=== PATIENT | male | born 1965 | race Caucasian/White ===

== ENCOUNTER 2017-10-14 11:06 | Inpatient (IN) | payer BC ==
[~2017-10-14] VITALS: Ht 175.3 cm; Wt 94.0 kg
[~2017-10-14 11:06] MED LIST: AMPICILLIN PO; JANUVIA100 MG PO; LEVEMIR100 UNIT/1 SC; LISINOPRIL2.5 MG PO; TYLENOL # 31 EA PO
--- OUTSIDE RECORDS SUMMARY | 2017-10-14 12:15 | XMS REPORT | Continuity of Care Document ---
Author Author [facility] Organization [facility] Address [address] [place] [address] Phone Unavailable Care Team Providers Care Pony Ride Attendant Name Role Phone NO, PCP PCP Unavailable Insurance Providers Guarantor Lina Lin Address [address] [place] [address] Email [email or web address] Policy Number [id number] Subscriber's Name Lina Lin Relationship 18 Self / Same As Patient Group Number [id number] Group Name [employer] Effective Date 17 Advance Directives Directive Response Recorded Date/Time Does the patient have an advance directive? No 10/05/17 5:47pm If yes, is advance directive on file with [facility]? No 10/05/17 5:47pm If not on file with [facility] will patient provide a copy? No 10/05/17 5:47pm Do you have a Directive to Physician? No 10/05/17 10:23am Do you have a Medical Power of Lamp [employer]? No 10/05/17 10:23am Do you have an out of hospital Do Not Resuscitate Order? No 10/05/17 10:23am Do you have any special needs we should be aware of? No 10/05/17 10:23am Do you have a support person here with you today? Yes 10/05/17 10:23am Did patient receive Notice of Privacy Practices? Yes 10/05/17 10:23am Did patient receive patient rights and responsibilities? Yes 10/05/17 10:23am Problems Medical Problem Onset Date Status Abscess of deltoid region Unknown Medications Current Home Medications Medication Dose Units Route Directions Days Qty Instructions Start Date Acetaminophen/Codeine Phosphate (Tylenol # 3*) 1 Ea Tab 1 Tab Oral Every 8 Hours as needed for Pain 30 10/07/17 Ampicillin 500 Mg Oral Every 6 Hours 7 Days 10/07/17 Insulin Detemir (Levemir) 100 Unit/1 Ml Vial 20 Subcutaneously Daily Insulin Detemir (Levemir) 100 Unit/1 Ml Vial 20 Mg Subcutaneously Bedtime Lisinopril 2.5 Mg Tablet 2.5 Mg Oral Daily 30 Tab Sitagliptin Phosphate (Januvia) 100 Mg Tablet 100 Mg Oral Daily 30 Days 10/07/17 Social History Social History Problem Response Recorded Date/Time Onset Date Status Hx Psychiatric Problems No 10/05/2017 5:47pm Not Applicable Not Applicable Hx Eating Disorder No 10/05/2017 5:47pm Not Applicable Not Applicable Hx Substance Use Disorder No 10/05/2017 5:47pm Not Applicable Not Applicable Hx Depression No 10/05/2017 5:47pm Not Applicable Not Applicable Hx Alcohol Use Y - ONCE OR TWICE A MONTH 10/05/2017 5:47pm Not Applicable Not Applicable Hx Substance Use Treatment No 10/05/2017 5:47pm Not Applicable Not Applicable Hx Physical Abuse No 10/05/2017 5:47pm Not Applicable Not Applicable Smoking Status Start Date Stop Date Current every day smoker Hospital Discharge Instructions No hospital discharge instruction information available. Plan of Care Discharge Date 10/07/17 1:26pm Disposition HOME, SELF-CARE Instructions/Education Provided Skin Abscess Prescriptions See Medication Section Additional Instructions/Education F/U WITH PCP IN 2 WEEKS Functional Status Query Response Date Recorded Assistive Devices None October 05, 2017 5:56pm Ambulation Ability Independent October 05, 2017 5:56pm Toileting Ability Independent October 06, 2017 5:11am Allergies, Adverse Reactions, Alerts No known allergies. Immunizations No immunization information available. Vital Signs Acute Vital Signs Vital Response Date/Time Temperature (Fahrenheit) 98.1 degrees F (97.6 - 99.5) 10/07/2017 12:10pm Pulse Pulse Rate (adult) 85 bpm (60 - 90) 10/07/2017 12:10pm Respiratory Rate 20 bpm (12 - 24) 10/07/2017 12:10pm Blood Pressure 156/89 mm Hg 10/07/2017 12:10pm Height 5 ft 9 in 10/05/2017 9:23am Weight 210 lb 10/05/2017 9:23am Body Mass Index 31.0 kg/m^2 10/05/2017 5:47pm Results Laboratory Results Test Name Result Units Flags Reference Collection Date/Time Result Date/ Time Comments White Blood Count 8.34 x10e3/uL 4.8-10.8 10/07/2017 6:30am 10/07/2017 7 :57am Red Blood Count 3.87 x10e6/uL L 4.3-5.7 10/07/2017 6:30am 10/07/2017 7: 57am Hemoglobin 11.7 g/dL L 14.0-18.0 10/07/2017 6:3010/07/2017 7:57am Hematocrit 35.3 % L 38.2-49.6 10/07/2017 6:3010/07/2017 7:57am Mean Corpuscular Volume 91.2 fL 81-99 10/07/2017 6:3010/07/2017 7: 57am Mean Corpuscular Hemoglobin 30.2 pg 28-32 10/07/2017 6:3010/07/2017 7:57am Mean Corpuscular Hemoglobin Concent 33.1 g/dL 31-35 10/07/2017 6:3010/07/2017 7:57am Red Cell Distribution Width 11.9 % 11.7-14.4 10/07/2017 6:302017 7:57am Platelet Count 243 x10e3/uL 140-360 10/07/2017 6:3010/07/2017 7: 57am Neutrophils (%) (Auto) 73.9 % 38.7-80.0 10/07/2017 6:3010/07/2017 7: 57am Lymphocytes (%) (Auto) 12.9 % L 18.0-39.1 10/07/2017 6:3010/07/2017 7 :57am Monocytes (%) (Auto) 10.4 % 4.4-11.3 10/07/2017 6:30am 10/07/2017 7: 57am Eosinophils (%) (Auto) 1.3 % 0.0-6.0 10/07/2017 6:30am 10/07/2017 7: 57am Basophils (%) (Auto) 0.5 % 0.0-1.0 10/07/2017 6:30am 10/07/2017 7:57am IM GRANULOCYTES % 1.0 % 0.0-1.0 10/07/2017 6:30am 10/07/2017 7:57am Neutrophils # (Auto) 6.2 2.1-6.9 10/07/2017 6:30am 10/07/2017 7:57am Lymphocytes # (Auto) 1.1 1.0-3.2 10/07/2017 6:30am 10/07/2017 7:57am Monocytes # (Auto) 0.9 H 0.2-0.8 10/07/2017 6:30am 10/07/2017 7:57am Eosinophils # (Auto) 0.1 0.0-0.4 10/07/2017 6:30am 10/07/2017 7:57am Basophils # (Auto) 0.0 0.0-0.1 10/07/2017 6:30am 10/07/2017 7:57am Absolute Immature Granulocyte (auto 0.08 x10e3/uL 0-0.1 10/07/2017 6: 30am 10/07/2017 7:57am Prothrombin Time 14.1 seconds 11.9-14.5 10/05/2017 9:20am 10/05/2017 10 :02am Prothromb Time International Ratio 1.18 10/05/2017 9:20am 2017 10:02am Oral Anticoagulant Therapy INR Values: 1. Low Intensity Therapy 1.5 - 2.0 2. Moderate Intensity Therapy 2.0 - 3.0 3. High Intensity Therapy(1) 2.5 - 3.5 4. High Intensity Therapy(2) 3.0 - 4.0 5. Panic Value INR > 5.0 Activated Partial Thromboplast Time 32.5 seconds 23.8-35.5 10/05/2017 9: 20am 10/05/2017 10:02am Sodium Level 136 mmol/L 136-145 10/07/2017 6:30am 10/07/2017 8:10am Potassium Level 4.4 mmol/L 3.5-5.1 10/07/2017 6:30am 10/07/2017 8:10am Chloride Level 98 mmol/L 98-107 10/07/2017 6:30am 10/07/2017 8:10am Carbon Dioxide Level 29 mmol/L 22-29 10/07/2017 6:30am 10/07/2017 8: 10am Anion Gap 13.4 mmol/L 8-16 10/07/2017 6:30am 10/07/2017 8:10am Blood Urea Nitrogen 12 mg/dL 7-26 10/07/2017 6:30am 10/07/2017 8:10am Creatinine 0.74 mg/dL 0.72-1.25 10/07/2017 6:30am 10/07/2017 8:10am BUN/Creatinine Ratio 16 6-10/07/2017 6:30am 10/07/2017 8:10am Estimat Glomerular Filtration Rate > 60 ML/MIN 60- 10/07/2017 6:30am 8:10am Ranges were taken from the National Kidney Disease Education Program and the National Kidney Foundation literature. Reference ranges: 60 or greater: Normal 16-59 (for 3 consecutive months): Chronic kidney disease 15 or less: Kidney failure Glucose Level 279 mg/dL H 74-118 10/07/2017 6:30am 10/07/2017 8:10am Calcium Level 9.3 mg/dL 8.4-10.2 10/07/2017 6:30am 10/07/2017 8:10am Bedside Glucose 344 mg/dL H 70-120 10/07/2017 11:34am 10/07/2017 11: 57am Meter ID: [id number] Hemoglobin A1c Percent 12.1 % H 4.0-7.0 10/06/2017 5:50am 10/06/2017 6: 36am Magnesium Level 1.3 MG/DL 1.3-2.1 10/07/2017 6:30am 10/07/2017 8:10am Total Bilirubin 0.6 mg/dL 0.2-1.2 10/05/2017 9:20am 10/05/2017 10:07am Aspartate Amino Transf (AST/SGOT) 17 IU/L 5-34 10/05/2017 9:20am 2017 10:07am Alanine Aminotransferase (ALT/SGPT) 25 IU/L 0-55 10/05/2017 9:20am 09/2017 10:07am Total Protein 7.2 g/dL 6.5-8.1 10/05/2017 9:20am 10/05/2017 10:07am Albumin 2.6 g/dL L 3.5-5.0 10/05/2017 9:20am 10/05/2017 10:07am Globulin 4.6 g/dL H 2.3-3.5 10/05/2017 9:20am 10/05/2017 10:07am Albumin/Globulin Ratio 0.6 L 0.8-2.0 10/05/2017 9:20am 10/05/2017 10: 07am Alkaline Phosphatase 104 IU/L 40-150 10/05/2017 9:20am 10/05/2017 10: 07am Thyroid Stimulating Hormone (TSH) 0.891 uIU/mL 0.350-4.940 10/06/2017 5: 50am 10/06/2017 7:11am Vancomycin Level Trough 4.3 ug/mL L 5.0-10.0 10/07/2017 8:49am 2017 10:31am Body Fluid Type RT DELTOID ABSCESS 10/05/2017 3:00pm 10/05/2017 5: 08pm Body Fluid Color RED 10/05/2017 3:00pm 10/05/2017 5:08pm Body Fluid Appearance TURBID 10/05/2017 3:00pm 10/05/2017 5:08pm Body Fluid WBC 20764 cells/uL 10/05/2017 3:00pm 10/05/2017 5:08pm Body Fluid RBC 96210 cells/uL 10/05/2017 3:00pm 10/05/2017 5:08pm Body Fluid Neutrophils 0 % 10/05/2017 3:00pm 10/05/2017 5:09pm Body Fluid Lymphocytes 91 % 10/05/2017 3:00pm 10/05/2017 5:07pm Body Fluid Monocytes 9 % 10/05/2017 3:00pm 10/05/2017 5:07pm Body Fluid Total Cells Counted 100 10/05/2017 3:00pm 10/05/2017 5: 07pm Microbiology Results Procedure Source Organism/Result Collection Date/Time Result Date/Time Result Status Blood Culture Blood NO GROWTH AFTER 48 HOURS 9:20am 10/07/2017 9:51am Preliminary Wound Culture Shoulder, Right STREP AGALACTIAE GROUP B 10/05/2017 3:00pm 10:07am Final Procedures Procedure Status Date Provider(s) Limited non-vascular ultrasound of extremity Active 10/05/17 BOAZ WELLS MD Imaging guided percutaneous drainage of abscess Active 10/05/17 BOAZ WELLS MD Limited non-vascular ultrasound of extremity Active 10/06/17 DAVID SEN PHARMACY BILLING ADJUDICATOR Encounters Encounter Location Arrival/Admit Date Discharge/Depart Date Attending Provider Discharged Inpatient [facility] 10/05/17 11:14am 1:26pm SIGIFREDO ROMEO MD
[2017-10-14] MEDS ORDERED: ONDANSETRON HCL INJ 2 MG/ML VIAL IV PRN (12:30)
[2017-10-14] MEDS ORDERED: DEXTROSE 50% SYRINGE 50 ML IV PRN (12:30)
[2017-10-14] MEDS ORDERED: ONDANSETRON HCL 4 MG ORAL DISINTEGRATING TAB SL PRN (12:45)
[2017-10-14] MEDS: MORPHINE SULFATE 2 MG/ML SYR IV PRN ×2 (12:50→20:00)
[2017-10-14 13:22] VITALS: BP 131/80
[2017-10-14] MEDS ORDERED: SODIUM CHLORIDE 0.9% 50ML 50 ML ONE (14:02)
[2017-10-14] MEDS ORDERED: PIPER-TAZ 3.375 GM 100 ML IV ONE (15:00)
[2017-10-14 16:00] VITALS: BP 134/85
[2017-10-14] MEDS: INSULIN REGULAR, HUMAN 100 UNIT/1 ML 3ML VIAL SQ SCH ×2 (17:03→22:00)
[2017-10-14] MEDS ORDERED: LIDOCAINE HCL 2% LOCAL INJ 5 ML SDV VIAL INJ ONE (19:48)
[2017-10-14] MEDS ORDERED: SEVOFLURANE INHAL SOLN 250 ML PEN BTL ONE (19:48)
[2017-10-14] MEDS ORDERED: ONDANSETRON HCL INJ 2 MG/ML VIAL ONE (19:48)
[2017-10-14] MEDS ORDERED: PROPOFOL IV EMULSION 10 MG/ML 20 ML VIAL ONE (19:48)
[2017-10-14 20:00] VITALS: BP 130/82
[2017-10-15] VITALS (7 sets, daily range): BP systolic 119–147; BP diastolic 74–92
[2017-10-15] MEDS: MORPHINE SULFATE 2 MG/ML SYR IV PRN ×4 (02:15→23:01)
[2017-10-15] MEDS: INSULIN REGULAR, HUMAN 100 UNIT/1 ML 3ML VIAL SQ SCH ×4 (07:30→20:28)
[2017-10-15] MEDS ORDERED: DEXTROSE 5%/0.45% SOD CHL 1,000 ML IV ONE (11:15)
[2017-10-15] MEDS ORDERED: VANCOMYCIN 1GM/NS 250 ML 250 ML IV SCH (11:30)
[2017-10-15] MEDS: VANCOMYCIN 1GM/NS 250 ML 250 ML IV SCH (12:11)
[2017-10-15] MEDS: PIPER-TAZ 3.375 GM 100 ML IV SCH ×2 (13:40→22:55)
--- NOTE | 2017-10-15 14:30 | History and Physical ---
PRIMARY CARE PHYSICIAN: He does not have a PCP. 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 This became progressively worse, and the bruise did not dissipate. Thus he went to [facility] urgent care and had an MRI where they told him that he needed surgery due to an abscess. He was on clindamycin since October 12. He arrived via the emergency department, is currently stable without leukocytosis and is afebrile. PAST MEDICAL HISTORY: Hypertension, type 2 diabetes mellitus. PAST SURGICAL HISTORY: He states he has never had surgery. SOCIAL HISTORY: The patient works in construction. He is single, has a daughter. He is , speaks [place] as primary language. He smokes about 3 cigarettes per day. He drinks alcohol on occasion. He denies any illicit drug use. ALLERGIES: NO KNOWN ALLERGIES. HOME MEDICATIONS: Include 1. Tylenol No. 3 one tablet p.o. q.8 h. p.r.n. for pain. 2. Lisinopril 2.5 mg p.o. daily. 3. Januvia 100 mg p.o. daily. 4. Levemir 20 units subcutaneous q.12 h. 5. Clindamycin. REVIEW OF SYSTEMS GENERAL: Denies fatigue or malaise. Denies any fever or chills. HEENT: Denies any visual complaints or complaints of dry throat. Denies stuffy nose. CARDIOVASCULAR: Denies any chest pain or palpitations. PULMONARY: He denies any pleuritic chest pain, cough, shortness of breath. GASTROINTESTINAL: Denies nausea, vomiting, diarrhea, constipation, melena or hematemesis. GENITOURINARY: No complaints of dysuria or pyuria. MUSCULOSKELETAL: The patient complains of right shoulder pain approximately 7 on a scale of 0 to 10. Denies any back pain or other joint pain. ENDOCRINE: Positive for diabetes. HEMATOLOGY: Denies any history of bleeding or bruising. INFECTIOUS DISEASE: No known history of HIV or immunodeficiency. NEUROLOGIC: Denies any numbness, tingling, seizures. He has some focal weakness in the right arm associated with the abscess. PHYSICAL EXAMINATION VITAL SIGNS: Temperature 98.1, T-max 98.4, heart rate 73, blood pressure 145/80, respirations 18, oxygen saturation 95%. GENERAL: The patient is lying supine in bed. He is awake, alert, oriented, well nourished, well developed, in no apparent distress. HEENT: Pupils equal, round, reactive to light. Extraocular eye movements are intact. Oropharynx is clear. Atraumatic, normocephalic. NECK: Supple. No lymphadenopathy, thyromegaly or JVD noted. CARDIOVASCULAR: Regular rate and rhythm without murmur. LUNGS: Clear to auscultation, air entry bilaterally. Respirations are even and unlabored. No wheezing, crackles or rhonchi. ABDOMEN: Bowel sounds positive. Soft, nontender. No hepatosplenomegaly noted. BACK: No costovertebral angle tenderness. EXTREMITIES: He has pain and decreased range of motion in the right upper extremity. He has joint swelling in the right shoulder and pain to gentle palpation. INTEGUMENTARY: No lesions or abrasions, et cetera. Skin is warm and dry. NEUROLOGICAL: GCS 15. Cranial nerves 2-12 are intact. Nonfocal. Alert and oriented x3. LABORATORY DATA: Fingerstick blood glucose level 119, yesterday 272 and 221. He has not had any other labs drawn. On October 06 he had a right shoulder ultrasound which showed no fluid collections, abscesses or masses. On October 05 he had a chest x-ray which was negative. Yesterday he had an MRI of the right shoulder which showed a fairly large multilocular 8.5 cm long x 3 cm deep x 3 cm craniocaudal intramuscular abscess involving the dorsal aspect of the deltoid muscle as well as lateral portion of the infraspinous muscle belly. No EKG noted in the chart. ASSESSMENT AND PLAN 1. Right deltoid abscess. Case was discussed with Dr. Franklin. Will ask that Dr. Almodovar with general surgery see the patient. For now will put in orders for vancomycin 1 g IV q.24 h. and Zosyn 3.375 g IV q.8 h. Maintain nutritional support. We will start wound healing supplements preoperatively. The patient will likely require surgery due to the size and extent of the abscess. 2. Right shoulder pain. Currently pain is relieved, been on morphine sulfate 4 mg q.4 h. p.r.n. 3. Hypertension. Continue home medication of lisinopril 2.5 mg p.o. daily. 4. Type 2 diabetes mellitus. Continue regular insulin sliding scale and monitor fingerstick blood glucose levels a.c. and nightly. I will start Lovenox for DVT prophylaxis and Pepcid for peptic ulcer disease prophylaxis. Dictated by: Ronald Cortez, SHUTTLE FINAL INSPECTOR SIGIFREDO FRANKLIN MD Job#: [id number] EV
[2017-10-15] MEDS ORDERED: FENTANYL CITRATE/PF 100MCG/2 ML INJ ONE ×2 (14:45→15:37)
[2017-10-15] MEDS ORDERED: MIDAZOLAM HCL 2 MG/2 ML VIAL ONE (14:45)
[2017-10-15] MEDS ORDERED: HYDROCODONE/APAP 7.5MG-325MG 1 EA TAB PO PRN (15:30)
--- NOTE | 2017-10-15 15:57 | Consultation ---
DATE OF CONSULTATION: October 15, 2017 SURGICAL CONSULTATION REFERRING PHYSICIAN: Dr. Franklin. HISTORY OF PRESENT ILLNESS: Patient is a 52-year-old male who has had complaints of pain in his right shoulder for about a month after doing some heavy lifting. He had previous percutaneous drainage, but the pain has persisted and it has now developed purulent drainage from the area. Also noted to have findings as he may have diabetes. PAST MEDICAL HISTORY: Significant for hypertension. ALLERGIES: HE HAS NO ALLERGIES. FAMILY HISTORY: Noncontributory. SOCIAL HISTORY: Noncontributory. REVIEW OF SYSTEMS: As stated above. He has not had any fever. PHYSICAL EXAMINATION: GENERAL: The patient is awake and alert. VITAL SIGNS: The vitals signs were normal. HEENT: Reveals no scleral icterus. NECK: Has no masses. LUNGS: Equal breath sounds are clear bilaterally. CARDIAC: Regular rate and rhythm with no murmur. ABDOMEN: Soft without tenderness. EXTREMITIES: In the right shoulder, there is swelling and induration over the lateral right shoulder. There is a sinus tract opening with purulent drainage. ASSESSMENT: This is a 52-year-old male with an abscess in the right shoulder. Plan incision and drainage of the abscess to be done today. Procedure was explained to the patient. Thank you for asking me to see Mr. Osorio. Job#: [id number] NATALY
--- NOTE | 2017-10-15 16:01 | Operative Report ---
DATE OF PROCEDURE: October 15, 2017 PREOPERATIVE DIAGNOSIS: Abscess, right shoulder. POSTOPERATIVE DIAGNOSIS: Deep complex abscess, right shoulder. PROCEDURE: Incision and drainage of deep keep complex abscess, right shoulder. SHOE STICKS REPAIRER: None. ANESTHESIA: General. INDICATIONS AND FINDINGS: Patient is a 52-year-old male who has had pain and infection in the right shoulder for about 3 weeks. At surgery there was purulent fluid deep within the right shoulder and the deltoid muscle extending down posteriorly along the scapula and medially almost to the axilla. Total amount of purulent fluid drained was about 125 mL. TECHNIQUE: After adequate general anesthesia with the patient in supine position with the right shoulder elevated, the right shoulder was prepped and draped in sterile fashion with Betadine solution. There was a sinus tract with purulent drainage. Incision was made through this area and carried down through the subcutaneous tissue. There we a pocket of purulent fluid in the subcutaneous tissue which was retracted inferiorly. Incision was extended to provide adequate drainage. There was found to be sinus tracts with purulent fluid coming from deeper and the incision was deepened. There was purulent fluid coming from the deltoid muscle and this was opened and all the purulent fluid drained. There was no necrotic tissue. There was found posteriorly a tract containing a large amount of purulent fluid which tracked along the scapula, and this area was opened and all the fluid drained and also this extended down along the scapula and towards the axilla. Once all the pockets of purulent fluid had been drained, the wound was irrigated with dilute Betadine solution. A total of about 125 mL of purulent fluid was drained. Hemostasis was seen to be adequate. Each pocket was then packed open with 1 inch iodoform gauze and sterile dressing applied. Patient tolerated procedure well. Estimated blood loss was 20 mL. There were no complications. All counts were correct. Patient was taken to the recovery room in satisfactory condition. Job#: [id number] cc:SIGIFREDO ROMEO MD
[2017-10-15] MEDS: ENOXAPARIN 30 MG/0.3 ML SYR SC SCH (16:50)
[2017-10-15] MEDS: ASCORBIC ACID 500 MG TAB PO SCH (16:50)
[2017-10-15] MEDS: ZINC SULFATE 220 MG CAP PO SCH (16:50)
[2017-10-15] MEDS: FAMOTIDINE 20 MG/2 ML VIAL IV SCH (16:50)
[2017-10-15] MEDS: OYST-CAL-D 500MG TABLET PO SCH (16:50)
[2017-10-15] MEDS: DOCUSATE SODIUM 100 MG CAP PO SCH (16:50)
[2017-10-15] MEDS: MAGNESIUM OXIDE 400 MG TAB PO SCH (16:50)
[2017-10-16] VITALS: BP 121/70
[2017-10-16 04:00] VITALS: BP 141/63
[2017-10-16] MEDS: MORPHINE SULFATE 2 MG/ML SYR IV PRN (05:04)
[2017-10-16] MEDS ORDERED: SODIUM CHLORIDE 0.9% 250ML 250 ML ONE (05:49)
[2017-10-16] MEDS: PIPER-TAZ 3.375 GM 100 ML IV SCH ×3 (06:00→22:53)
[2017-10-16 06:51] LABS: BASOPHILS # (AUTO) 0.1 (0.0-0.1); BASOPHILS % 0.6 % (0.0-1.0); EOSINOPHILS # (AUTO) 0.1 (0.0-0.4); EOSINOPHILS % 1.1 % (0.0-6.0); HEMATOCRIT 36.5 % (38.2-49.6); HEMOGLOBIN 12.1 g/dL (14.0-18.0); LYMPHOCYTES # (AUTO) 1.7 (1.0-3.2); LYMPHOCYTES % 16.4 % (18.0-39.1); MEAN CORPUSCULAR HEMOGLOBIN 29.7 pg (28-32); MEAN CORPUSCULAR HGB CONC 33.2 g/dL (31-35); MEAN CORPUSCULAR VOLUME 89.5 fL (81-99); MONOCYTES # (AUTO) 0.8 (0.2-0.8); MONOCYTES % 7.3 % (4.4-11.3); NEUTROPHILS # (AUTO) 7.5 (2.1-6.9); NEUTROPHILS % 73.7 % (38.7-80.0); PLATELET COUNT 314 x10e3/uL (140-360); RED BLOOD COUNT 4.08 x10e6/uL (4.3-5.7); RED CELL DISTRIBUTION WIDTH 11.8 % (11.7-14.4)
[2017-10-16 07:18] LABS: ANION GAP 13.3 mmol/L (8-16); BLOOD UREA NITROGEN 12 mg/dL (7-26); BUN/CREATININE RATIO 17 (6-25); CALCIUM 8.8 mg/dL (8.4-10.2); CARBON DIOXIDE 25 mmol/L (22-29); CHLORIDE 101 mmol/L (98-107); EST GLOMERULAR FILTRATION RATE > 60 ML/MIN (60-); GLUCOSE 260 mg/dL (74-118); MAGNESIUM 1.4 MG/DL (1.3-2.1); PHOSPHORUS 3.3 MG/DL (2.3-4.7); POTASSIUM 4.3 mmol/L (3.5-5.1); SODIUM 135 mmol/L (136-145)
[2017-10-16 07:21] VITALS: BP 122/78
[2017-10-16 07:25] LABS: THYROID STIMULATING HORMONE 1.776 uIU/mL (0.350-4.940)
[2017-10-16 07:30] VITALS: BP 122/78
[2017-10-16] MEDS: FAMOTIDINE 20 MG/2 ML VIAL IV SCH ×2 (07:30→16:30)
[2017-10-16] MEDS: OYST-CAL-D 500MG TABLET PO SCH ×2 (07:30→16:30)
[2017-10-16] MEDS: ZINC SULFATE 220 MG CAP PO SCH ×2 (07:30→16:30)
[2017-10-16] MEDS: DOCUSATE SODIUM 100 MG CAP PO SCH ×2 (07:30→16:30)
[2017-10-16] MEDS: MAGNESIUM OXIDE 400 MG TAB PO SCH ×2 (07:30→16:30)
[2017-10-16] MEDS: LISINOPRIL 2.5 MG TAB PO SCH (07:30)
[2017-10-16] MEDS: MULTIVITAMINS/MINERALS TAB PO SCH (07:30)
[2017-10-16] MEDS: INSULIN REGULAR, HUMAN 100 UNIT/1 ML 3ML VIAL SQ SCH ×4 (07:30→20:26)
[2017-10-16] MEDS: ASCORBIC ACID 500 MG TAB PO SCH ×2 (07:30→16:30)
[2017-10-16] MEDS ORDERED: MAGNESIUM SULFATE 2GM/50ML 50 ML IV ONE (08:00)
[2017-10-16 12:00] VITALS: BP 123/84
[2017-10-16] MEDS: VANCOMYCIN 1GM/NS 250 ML 250 ML IV SCH (13:11)
[2017-10-16 15:57] VITALS: BP 122/79
[2017-10-16] MEDS ORDERED: ACETAMINOPHEN 325 MG TAB PO PRN (16:00)
[2017-10-16] MEDS: ENOXAPARIN 30 MG/0.3 ML SYR SC SCH (16:30)
[2017-10-17 00:24] VITALS: BP_SYST 134
[2017-10-17] MEDS: MORPHINE SULFATE 2 MG/ML SYR IV PRN (02:05)
[2017-10-17] MEDS: PIPER-TAZ 3.375 GM 100 ML IV SCH (05:29)
[2017-10-17 05:46] VITALS: BP 115/77
[2017-10-17 06:11] LABS: BASOPHILS # (AUTO) 0.1 (0.0-0.1); BASOPHILS % 0.6 % (0.0-1.0); EOSINOPHILS # (AUTO) 0.1 (0.0-0.4); EOSINOPHILS % 1.3 % (0.0-6.0); HEMATOCRIT 36.8 % (38.2-49.6); HEMOGLOBIN 12.3 g/dL (14.0-18.0); LYMPHOCYTES # (AUTO) 1.9 (1.0-3.2); LYMPHOCYTES % 20.9 % (18.0-39.1); MEAN CORPUSCULAR HEMOGLOBIN 29.8 pg (28-32); MEAN CORPUSCULAR HGB CONC 33.4 g/dL (31-35); MEAN CORPUSCULAR VOLUME 89.1 fL (81-99); MONOCYTES # (AUTO) 0.7 (0.2-0.8); MONOCYTES % 7.3 % (4.4-11.3); NEUTROPHILS # (AUTO) 6.2 (2.1-6.9); NEUTROPHILS % 69.2 % (38.7-80.0); PLATELET COUNT 290 x10e3/uL (140-360); RED BLOOD COUNT 4.13 x10e6/uL (4.3-5.7); RED CELL DISTRIBUTION WIDTH 11.8 % (11.7-14.4)
[2017-10-17 06:35] LABS: ANION GAP 12.2 mmol/L (8-16); BLOOD UREA NITROGEN 15 mg/dL (7-26); BUN/CREATININE RATIO 20 (6-25); CARBON DIOXIDE 25 mmol/L (22-29); CHLORIDE 102 mmol/L (98-107); CREATININE, SERUM 0.75 mg/dL (0.72-1.25); EST GLOMERULAR FILTRATION RATE > 60 ML/MIN (60-); GLUCOSE 299 mg/dL (74-118); MAGNESIUM 1.7 MG/DL (1.3-2.1); PHOSPHORUS 3.2 MG/DL (2.3-4.7); POTASSIUM 4.2 mmol/L (3.5-5.1); SODIUM 135 mmol/L (136-145)
[2017-10-17] MEDS: OYST-CAL-D 500MG TABLET PO SCH (08:53)
[2017-10-17] MEDS: DOCUSATE SODIUM 100 MG CAP PO SCH (08:53)
[2017-10-17] MEDS: MULTIVITAMINS/MINERALS TAB PO SCH (08:53)
[2017-10-17] MEDS: MAGNESIUM OXIDE 400 MG TAB PO SCH (08:53)
[2017-10-17] MEDS: FAMOTIDINE 20 MG/2 ML VIAL IV SCH (08:53)
[2017-10-17] MEDS: INSULIN REGULAR, HUMAN 100 UNIT/1 ML 3ML VIAL SQ SCH ×2 (08:53→11:30)
[2017-10-17] MEDS: ASCORBIC ACID 500 MG TAB PO SCH (08:54)
[2017-10-17] MEDS: ZINC SULFATE 220 MG CAP PO SCH (08:54)
[2017-10-17] MEDS: LISINOPRIL 2.5 MG TAB PO SCH (08:54)
[2017-10-17 09:33] VITALS: BP 127/78
[2017-10-17] MEDS: VANCOMYCIN 1GM/NS 250 ML 250 ML IV SCH (15:21)
--- NOTE | 2017-10-17 18:29 | Discharge Summary ---
ADMISSION DIAGNOSES 1. Right deltoid abscess. 2. Right shoulder pain. 3. Hypertension. 4. Type 2 diabetes. DISCHARGE DIAGNOSES 1. Right deltoid abscess. 2. Right shoulder pain. 3. Hypertension. 4. Type 2 diabetes. 5. Hyponatremia. 6. History of hypertension. 7. Type 2 diabetes. 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 He experienced pain in the shoulder and thought it was a bruise. When the pain became worse, he came to the hospital. Initially, 2 weeks ago he had been seen by IR with very minimal bloody drainage noted. The patient was discharged home with ampicillin per the wound culture that showed Staph. He arrived back because the pain is still there. On admission, the patient was started on vancomycin and Zosyn. Surgery was consulted. The patient had INR on October 15. Purulent drainage was found, about was drained. Wound cultures showed no WBCs, no organisms seen and no growth after 2 days. The patient was resumed on home medications for hypertension and type 2 diabetes. after surgery, per surgeon. He will go home with wound care, dry dressing change and p.r.n. He will have antibiotics for 2 more weeks and primary JOB ENDS - INCOMPLETE. Dictated by: Ammy Wilks NP SIGIFREDO ROMEO MD Job#: [id number]
== END 2017-10-17 16:00 | disposition home or self-care (01) | DRG 501 ==
LOC: MED/SURG2 12:12
PROVIDERS: ADMIT Internal Medicine; ATTEND Internal Medicine
PROC: 0K9 Muscles, Drainage (ICD-10-PCS; principal; 2017-10-15 14:52)
DX: M60.000 Infective myositis, unspecified right arm (principal); E87.1 Hypo-osmolality and hyponatremia; I10 Essential (primary) hypertension; E11.9 Type 2 diabetes mellitus without complications; Z72.0 Tobacco use; R51 Headache; Z79.4 Long term (current) use of insulin
CPT/HCPCS: 36415; 80048; 82948; 83735; 84100; 84443; 85025; 87071; 87075; 87205; 97139; J1650; J2001; J2250; J2270; J2405; J2543; J3370; J7050